=== PATIENT | female | born 1955 | race Hispanic/Latino ===

== ENCOUNTER 2019-12-15 09:41 | Day surgery (SDC) | payer MEDICAID ==
[~2019-12-15] VITALS: Ht 147.3 cm; Wt 54.4 kg
[~2019-12-15 09:41] MED LIST: SODIUM CHLORIDE 0.9% 1000ML 1,000 ML IV ONE
[2019-12-15 10:53] VITALS: BP 97/44
[2019-12-15] MEDS ORDERED: SERT50TA12 PO (11:06)
[2019-12-15] MEDS ORDERED: CARBAMAZEPINE (11:06)
[2019-12-15] MEDS ORDERED: BIOT5000 PO (11:06)
[2019-12-15] MEDS ORDERED: CARBAMAZEPINE PO (11:06)
[2019-12-15] MEDS ORDERED: LAMO100T66 PO ×2 (11:06)
[2019-12-15] MEDS ORDERED: PROPOFOL 10 MG/ML 20ML VIAL IV ONE ×2 (11:31)
[2019-12-15 11:56] VITALS: BP 94/46
--- NOTE | 2019-12-15 12:18 | NUR ---
PT LEFT VIA WHEELCHAIR IN PVT CAR, D/C INSTRUCTIONS GIVEN TO SON, WITH F/U APPT AND RX SCRIPT. NO COMPLICATIONS UPON D/C AND V/S STABLE.
== END 2019-12-15 12:18 | disposition home or self-care (01) ==
LOC: DAH 09:41 → ENDO 09:41
PROVIDERS: ATTEND Internal Medicine
DX: K52.9 Noninfective gastroenteritis and colitis, unspecified (principal); K29.50 Unspecified chronic gastritis without bleeding; R15.9 Full incontinence of feces; R12 Heartburn; G40.909 Epilepsy, unspecified, not intractable, without status epilepticus; E78.5 Hyperlipidemia, unspecified; Z79.899 Other long term (current) drug therapy; Z98.890 Other specified postprocedural states
CPT/HCPCS: 43239; 45380; 88305; A4215; A4221; A4222; A4223; A4606; A4620; A4663; J2704 ×2; J7030